=== PATIENT | female | born 1990 | race Two or more races ===

== ENCOUNTER 2020-02-01 12:45 | Inpatient (IN) | payer OTHER ==
[~2020-02-01] VITALS: Ht 167.6 cm; Wt 3.2 kg
[2020-02-01] MEDS ORDERED: SYNTHROID88 MCG PO (14:19)
[2020-02-08] MEDS ORDERED: PRENATAL TABLE1 EAC4 PO (16:14)
[2020-02-08] MEDS ORDERED: SYNTHROID88 MCG PO (16:14)
== END 2020-02-11 11:40 | disposition home or self-care (01) | DRG 785 ==
LOC: OB/GYN 02-08 07:00 → LDR 02-08 14:59 → OB/GYN 02-08 19:45
PROVIDERS: ADMIT Obstetrics & Gynecology; ATTEND Obstetrics & Gynecology
PROC: 0UB70ZZ Excision of Bilateral Fallopian Tubes, Open Approach (ICD-10-PCS; 2020-02-08)
PROC: 4A1HXFZ Monitoring of Products of Conception, Cardiac Rhythm, External Approach (ICD-10-PCS; 2020-02-08)
PROC: 10D00Z1 Extraction of Products of Conception, Low, Open Approach (ICD-10-PCS; principal; 2020-02-08 07:00)
DX: O34.211 Maternal care for low transverse scar from previous cesarean delivery (principal); Z30.2 Encounter for sterilization; Z3A.39 39 weeks gestation of pregnancy; Z37.0 Single live birth

== ENCOUNTER 2023-03-31 12:20 | Emergency (ER) | payer OTHER ==
[~2023-03-31] VITALS: Ht 167.6 cm; Wt 95.3 kg
[~2023-03-31 12:20] MED LIST: PRENATAL TABLE1 EAC4 PO; SYNTHROID88 MCG PO
[2023-03-31] MEDS ORDERED: SYNTHROID112 MCG PO (13:27)
[2023-03-31 15:29] LABS: HEMATOCRIT 36.5 % (36.0-45.00); HEMOGLOBIN 12.1 g/dL (12.0-15.00); MEAN CELL VOLUME 76.7 fL (80.00-100.00); MEAN CORPUSCULAR HEMOGLOBIN 25.4 pg (27.00-32.0); MEAN CORPUSCULAR HGB CONC 33.2 g/dl (32.0-36.0); PLATELET COUNT 246 K/uL (150-450); RED BLOOD COUNT 4.76 M/uL (4.00-6.00); RED CELL DISTRIBUTION WIDTH 16.6 % (11.5-14.5)
[2023-03-31 15:30] LABS: URINE APPEARANCE Cloudy; URINE BILIRRUBIN Negative (NEGATIVE); URINE BLOOD NHT; URINE COLOR Yellow; URINE GLUCOSE Negative (NEGATIVE); URINE LEUKOCYTE Trace; URINE NITRATE Negative; URINE PROTEIN Trace (NEGATIVE); URINE UROBILINOGEN 0.2 E.U./dl
[2023-03-31 15:31] LABS: URINE BACTERIA 3462.3 uL (0.0-1933); URINE EPITHELIAL CELLS 75.7 uL (0.0-38.8); URINE RBC 62.2 uL (0.0-20.8); URINE WBC 124.7 uL (0.0-23.2)
[2023-03-31 15:51] LABS: CALCIUM 8.5 mg/dL (8.5-10.1); CREATININE SERUM 0.78 mg/dL (0.55-1.02); GFR 85.05; POTASSIUM 4.12 mEq/L (3.5-5.1)
== END 2023-03-31 16:41 | disposition home or self-care (01) ==
LOC: ER 12:20
PROVIDERS: General Practice
DX: M54.9 Dorsalgia, unspecified (principal); E03.9 Hypothyroidism, unspecified; N39.0 Urinary tract infection, site not specified